=== PATIENT | female | born 1940 | race Caucasian/White ===

== ENCOUNTER 2019-04-26 20:01 | Emergency (ER) | payer OTHER ==
[~2019-04-26] VITALS: Ht 149.9 cm; Wt 81.6 kg
[~2019-04-26 20:01] MED LIST: DIPH-179 PO
[2019-04-26 20:05] VITALS: BP_SYST 144
--- NOTE | 2019-04-26 20:21 | NUR ---
Patient to ER bed 07 TO gown for evaluation. Side rails up.
--- NOTE | 2019-04-26 20:24 | NUR ---
ER Dr. Conte at bedside examining patient.
--- NOTE | 2019-04-26 20:28 | NUR ---
Pt AAOx4, panamanian speaking only, presents to ED via wheelchair c/o 08/20 pain to L lower leg s/p television falling on L leg. Swelling, discoloration noted to site. No active bleeding present. Pt denies taking medication for pain. Son at bedside. Will continue to monitor.
[2019-04-26] MEDS ORDERED: DIPHENHYDRAMINE INJ 50 MG/ML VIAL IM ONE (20:30)
[2019-04-26] MEDS ORDERED: MORPHINE 4 MG/ML INJ. SYRINGE IM ONE (20:30)
--- NOTE | 2019-04-26 20:55 | NUR ---
Portable X Ray bedside, well tolerated
--- NOTE | 2019-04-26 21:30 | NUR ---
VSS, no s/s of acute distress. Resting on gurney with rails up
[2019-04-26 22:30] VITALS: BP_SYST 142
--- NOTE | 2019-04-26 22:30 | NUR ---
Patient given written and verbal discharge instructions and verbalizes understanding. ER MD discussed with patient the results and treatment provided. Patient in stable condition. ID arm band removed. Patient educated on pain management and to follow up with PMD. Pain Scale 0/10 Opportunity for questions provided and answered.
== END 2019-04-26 22:30 | disposition home or self-care (01) ==
LOC: SED 20:01
DX: S80.12XA Contusion of left lower leg, initial encounter (principal); I10 Essential (primary) hypertension; Z90.49 Acquired absence of other specified parts of digestive tract; W20.8XXA Other cause of strike by thrown, projected or falling object, initial encounter; Y93.89 Activity, other specified; Y92.89 Other specified places as the place of occurrence of the external cause; Y99.8 Other external cause status
CPT/HCPCS: 73590; 73610; 96372; 99283; J1200; J2270

== ENCOUNTER 2019-07-10 11:30 | Day surgery (SDC) | payer OTHER ==
[~2019-07-10] VITALS: Ht 157.5 cm; Wt 68.5 kg
[~2019-07-10 11:30] MED LIST changes: +CEFAZOLIN 2 GM IVPB PREMIX 50 ML IV ONE
[2019-07-10] MEDS ORDERED: ROCURONIUM BROMIDE 10 MG/ML (ZEMURON) IV ONE (11:45)
[2019-07-10] MEDS ORDERED: PROPOFOL 200MG/ 20ML VIAL (DIPRIVAN) IV ONE (11:45)
[2019-07-10] MEDS ORDERED: BUPIVACAINE /EPINEPHRINE/PF 0.25% 30 ML VIAL INJ ONE (11:45)
[2019-07-10] MEDS ORDERED: MIDAZOLAM HCL 5 MG/5 ML VIAL IVP ONE (11:45)
[2019-07-10] MEDS ORDERED: fentaNYL CITRATE/PF 100 MCG/2 ML AMP IVP ONE (11:45)
[2019-07-10] MEDS ORDERED: KETOROLAC TROMETHAMINE 30 MG VIAL IVP ONE (11:45)
[2019-07-10] MEDS ORDERED: NS IRRIG SOLN 1000 ML IR ONE (11:45)
[2019-07-10] MEDS ORDERED: SEVOFLURANE 15 MIN GAS INH ONE (11:45)
[2019-07-10] MEDS ORDERED: DEXAMETHASONE SOD PHOSPHATE 4 MG/ML VIAL IVP ONE (11:45)
[2019-07-10] MEDS ORDERED: ONDANSETRON HCL 4 MG/2 ML VIAL IVP ONE (11:45)
[2019-07-10] MEDS ORDERED: LR 1,000 ML IV.SOLN IV ONE (11:45)
[2019-07-10] MEDS ORDERED: POLYMYXIN 500,000/BACIT.10,000 UNITS in NS IRR 1 L IR ONE (12:37)
[2019-07-10] MEDS ORDERED: MEPERIDINE HCL/PF 25 MG/ML DISP.SYRIN IVP PRN (12:45)
[2019-07-10] MEDS ORDERED: HYDROmorphone 2 MG/ML VIAL IVP PRN ×2 (12:45)
[2019-07-10] MEDS ORDERED: HYDROmorphone 1 MG INJ. 1 MG/ML AMPUL IVP PRN (12:45)
[2019-07-10] MEDS ORDERED: traMADol HCL HCL 50 MG TABLET (ULTRAM) PO PRN (13:15)
[2019-07-10] MEDS: LR 1,000 ML IV SCH ×2 (13:45→15:10)
[2019-07-10] MEDS ORDERED: HYDROmorphone 1 MG INJ. 1 MG/ML AMPUL ONE (13:48)
[2019-07-10 17:09] VITALS: BP_SYST 131
== END 2019-07-10 15:20 | disposition home or self-care (01) ==
LOC: EDSTATUS 11:30 → SDS 11:30 → PREINTOOBSV 17:41
PROVIDERS: ATTEND Surgery
DX: S80.12XA Contusion of left lower leg, initial encounter (principal); L97.922 Non-pressure chronic ulcer of unspecified part of left lower leg with fat layer exposed; I10 Essential (primary) hypertension; H40.9 Unspecified glaucoma; K21.9 Gastro-esophageal reflux disease without esophagitis; Z90.89 Acquired absence of other organs; Z96.651 Presence of right artificial knee joint; Z79.899 Other long term (current) drug therapy; Z98.890 Other specified postprocedural states; W20.8XXA Other cause of strike by thrown, projected or falling object, initial encounter; Y93.89 Activity, other specified; Y92.89 Other specified places as the place of occurrence of the external cause; Y99.8 Other external cause status
CPT/HCPCS: 11042; 11045 ×5; 88304; J0690; J1100; J1170; J1885; J2250; J2405; J2704; J3010; J3490; J7120; 88305

== ENCOUNTER 2021-08-05 22:40 | Observation (INO) | payer OTHER, SELFPAY ==
[~2021-08-05] VITALS: Ht 152.4 cm; Wt 70.1 kg
[~2021-08-05 22:40] MED LIST changes: -CEFAZOLIN 2 GM IVPB PREMIX 50 ML IV ONE; -DIPH-179 PO; +LOM2.5 PO
[2021-08-05 22:50] VITALS: BP_SYST 177
[2021-08-05 23:27] LABS: BASOPHILS % (AUTO) 0.5 % (0.0-2.0); EOSINOPHILS # (AUTO) 0.1 K/uL (0.0-0.4); HEMATOCRIT 39.3 % (36-48); HEMOGLOBIN 13.3 g/dL (12.0-16.0); LYMPHOCYTES # (AUTO) 1.3 K/uL (1.0-5.5); LYMPHOCYTES % (AUTO) 25.4 % (20.5-51.5); MEAN CORPUSCULAR HEMOGLOBIN 32 pg (27-31); MEAN CORPUSCULAR HGB CONC 34 % (32-36); MEAN CORPUSCULAR VOLUME 95 fL (79.0-98.0); MONOCYTES # (AUTO) 0.5 K/uL (0.0-1.0); MONOCYTES % (AUTO) 9.9 % (1.7-9.3); NEUTROPHILS # (AUTO) 3.2 K/uL (1.8-7.7); NEUTROPHILS % (AUTO) 63.2 % (40.0-70.0); PLATELET COUNT (AUTO) 240 K/uL (130-430); RED BLOOD CELL COUNT(AUTO) 4.16 MIL/uL (4.2-6.2); RED CELL DISTRIBUTION WIDTH 13.8 % (9.0-15.0); WHITE BLOOD COUNT (AUTO) 5.1 K/uL (4.8-10.8)
[2021-08-06] VITALS (8 sets, daily range): BP systolic 121–144
[2021-08-06 00:19] LABS: ANION GAP 9 (5-15); CALCIUM 9.1 mg/dL (8.4-11.0); CHLORIDE 109 mmol/L (98-107); CREATININE 0.89 mg/dL (0.55-1.30); GLUCOSE 87 mg/dL (70-99); POTASSIUM 4.5 mmol/L (3.5-5.1); SODIUM SERUM 144 mmol/L (136-145); UREA NITROGEN, BLOOD 20 mg/dL (8-21)
[2021-08-06 00:26] LABS: ALANINE AMINOTRANSFERASE 26 U/L (12-78); ALBUMIN 3.3 g/dL (3.4-4.8); ASPARTATE AMINOTRANSFERASE 14 U/L (10-37); TOTAL BILIRUBIN 0.2 mg/dL (0.0-1.0)
[2021-08-06 00:26] LABS: BILIRUBIN,URINE NEGATIVE (NEGATIVE); BLOOD, URINE NEGATIVE (NEGATIVE); CLARITY/URINE CLEAR (CLEAR); COLOR,URINE YELLOW (YELLOW); GLUCOSE,URINE NEGATIVE (NEGATIVE); KETONES,URINE NEGATIVE (NEGATIVE); LEUKOCYTE ESTERASE ,URINE NEGATIVE (NEGATIVE); NITRITE, URINE NEGATIVE (NEGATIVE); PROTEIN URINE NEGATIVE (NEGATIVE); UROBILINOGEN,URINE 0.2 (0.2-1.0)
[2021-08-06] MEDS ORDERED: AZITHROMYCIN 250 MG TABLET PO ONE (01:15)
[2021-08-06] MEDS ORDERED: cefTRIAXone 1 GM IVPB PREMIX 50 ML IV ONE (01:15)
[2021-08-06] MEDS ORDERED: MULT-1089 PO (01:20)
[2021-08-06] MEDS ORDERED: VITD2000 PO (01:20)
[2021-08-06] MEDS ORDERED: PRO40 PO (01:20)
[2021-08-06] MEDS ORDERED: ATEN-41 PO (01:20)
[2021-08-06] MEDS ORDERED: IOHEXOL 350 mgI/mL, 150 ML INFUS..BTL IV ONE (01:26)
[2021-08-06] MEDS ORDERED: NALOXONE HCL 0.4 MG/ML AMP (NARCAN) IVP PRN (06:30)
[2021-08-06] MEDS ORDERED: HYDROcodone/ACETAMIN 5-325 MG TAB (NORCO/ VICODIN) PO PRN (06:30)
[2021-08-06] MEDS ORDERED: ALBUTEROL SULFATE 0.083% 2.5 MG/3 ML VIAL.NEB INH PRN (06:30)
[2021-08-06 08:29] LABS: BASOPHILS % (AUTO) 0.4 % (0.0-2.0); EOSINOPHILS % (AUTO) 0.8 % (0.0-4.0); HEMATOCRIT 39.5 % (36-48); HEMOGLOBIN 13.3 g/dL (12.0-16.0); LYMPHOCYTES # (AUTO) 1.7 K/uL (1.0-5.5); LYMPHOCYTES % (AUTO) 32.2 % (20.5-51.5); MEAN CORPUSCULAR HEMOGLOBIN 32 pg (27-31); MEAN CORPUSCULAR HGB CONC 34 % (32-36); MEAN CORPUSCULAR VOLUME 95 fL (79.0-98.0); MONOCYTES # (AUTO) 0.5 K/uL (0.0-1.0); MONOCYTES % (AUTO) 9.4 % (1.7-9.3); NEUTROPHILS # (AUTO) 3.1 K/uL (1.8-7.7); NEUTROPHILS % (AUTO) 57.2 % (40.0-70.0); PLATELET COUNT (AUTO) 232 K/uL (130-430); RED BLOOD CELL COUNT(AUTO) 4.17 MIL/uL (4.2-6.2); RED CELL DISTRIBUTION WIDTH 13.7 % (9.0-15.0); WHITE BLOOD COUNT (AUTO) 5.4 K/uL (4.8-10.8)
[2021-08-06 08:47] LABS: ALANINE AMINOTRANSFERASE 22 U/L (12-78); ALBUMIN 3.1 g/dL (3.4-4.8); ANION GAP 10 (5-15); ASPARTATE AMINOTRANSFERASE 13 U/L (10-37); CALCIUM 8.6 mg/dL (8.4-11.0); CHLORIDE 108 mmol/L (98-107); CREATININE 0.73 mg/dL (0.55-1.30); GLUCOSE 99 mg/dL (70-99); POTASSIUM 4.2 mmol/L (3.5-5.1); SODIUM SERUM 142 mmol/L (136-145); TOTAL BILIRUBIN 0.1 mg/dL (0.0-1.0); UREA NITROGEN, BLOOD 17 mg/dL (8-21)
[2021-08-06 09:54] LABS: CHOLESTEROL 143 mg/dL (<200); HDL CHOLESTEROL 44 mg/dL (>55); LDL CHOLESTEROL 94 mg/dL (<100); TRIGLYCERIDES 68 mg/dL (30-150)
[2021-08-06] MEDS: PANTOPRAZOLE SODIUM 40 MG TAB PO SCH (10:40)
[2021-08-06] MEDS: ATENOLOL 25 MG TABLET(TENORMIN) PO SCH (10:41)
[2021-08-06] MEDS: ASPIRIN 325 MG TABLET PO SCH (10:41)
[2021-08-06] MEDS: busPIRone HCL 5 MG TABLET PO SCH (21:35)
[2021-08-07] VITALS: BP_SYST 123
[2021-08-07 07:07] LABS: BASOPHILS % (AUTO) 0.6 % (0.0-2.0); EOSINOPHILS # (AUTO) 0.1 K/uL (0.0-0.4); EOSINOPHILS % (AUTO) 1.7 % (0.0-4.0); HEMATOCRIT 39.2 % (36-48); HEMOGLOBIN 13.1 g/dL (12.0-16.0); LYMPHOCYTES # (AUTO) 1.9 K/uL (1.0-5.5); LYMPHOCYTES % (AUTO) 38.2 % (20.5-51.5); MEAN CORPUSCULAR HEMOGLOBIN 32 pg (27-31); MEAN CORPUSCULAR HGB CONC 33 % (32-36); MEAN CORPUSCULAR VOLUME 95 fL (79.0-98.0); MONOCYTES # (AUTO) 0.6 K/uL (0.0-1.0); NEUTROPHILS # (AUTO) 2.5 K/uL (1.8-7.7); NEUTROPHILS % (AUTO) 48.5 % (40.0-70.0); PLATELET COUNT (AUTO) 231 K/uL (130-430); RED BLOOD CELL COUNT(AUTO) 4.13 MIL/uL (4.2-6.2); RED CELL DISTRIBUTION WIDTH 13.6 % (9.0-15.0); WHITE BLOOD COUNT (AUTO) 5.1 K/uL (4.8-10.8)
[2021-08-07 08:29] LABS: ALANINE AMINOTRANSFERASE 22 U/L (12-78); ANION GAP 12 (5-15); ASPARTATE AMINOTRANSFERASE 17 U/L (10-37); CALCIUM 8.6 mg/dL (8.4-11.0); CHLORIDE 108 mmol/L (98-107); CREATININE 0.91 mg/dL (0.55-1.30); GLUCOSE 94 mg/dL (70-99); POTASSIUM 4.3 mmol/L (3.5-5.1); SODIUM SERUM 143 mmol/L (136-145); TOTAL BILIRUBIN 0.3 mg/dL (0.0-1.0); UREA NITROGEN, BLOOD 22 mg/dL (8-21)
[2021-08-07] MEDS: busPIRone HCL 5 MG TABLET PO SCH (09:19)
[2021-08-07] MEDS: PANTOPRAZOLE SODIUM 40 MG TAB PO SCH (09:19)
[2021-08-07] MEDS: ASPIRIN 325 MG TABLET PO SCH (09:19)
[2021-08-07 09:27] VITALS: BP_SYST 163
[2021-08-07] MEDS: ATENOLOL 25 MG TABLET(TENORMIN) PO SCH (09:27)
[2021-08-07 11:55] VITALS: BP_SYST 137
[2021-08-07 14:06] VITALS: BP_SYST 137
== END 2021-08-07 14:40 | disposition home or self-care (01) ==
LOC: SED 22:40 → STU 08-06 03:30
PROVIDERS: ADMIT Internal Medicine Hospice and Palliative Medicine; ATTEND Internal Medicine Hospice and Palliative Medicine
DX: R07.89 Other chest pain (principal); Z20.822 Contact with and (suspected) exposure to COVID-19; I10 Essential (primary) hypertension; I77.810 Thoracic aortic ectasia; J98.11 Atelectasis; F41.9 Anxiety disorder, unspecified; Z90.710 Acquired absence of both cervix and uterus; Z79.899 Other long term (current) drug therapy; Z90.49 Acquired absence of other specified parts of digestive tract
CPT/HCPCS: 36415 ×2; 70450; 71045; 71275; 76376 ×2; 80053 ×3; 80061; 81003; 83605 ×2; 83880; 84484 ×2; 85025 ×3; 85379; 87040; 87426; 93005 ×3; 93306; 96365; 99285; G0378 ×2; J0696; Q0144; Q9967 ×2

== ENCOUNTER 2023-05-14 06:12 | Inpatient (IN) | payer OTHER ==
[~2023-05-14] VITALS: Ht 162.6 cm; Wt 68.9 kg
[~2023-05-14 06:12] MED LIST changes: +ATEN-41 PO; -LOM2.5 PO; +MULT-1089 PO; +PRO40 PO; +VITD2000 PO
[2023-05-14 06:21] VITALS: BP_SYST 151; PULSE 68; RESP 18; TEMP 98.4; O2SAT 99
--- NOTE | 2023-05-14 06:34 | NUR ---
Patient to ER bed 7 to gown for evaluation. Side rails up.
--- NOTE | 2023-05-14 06:36 | NUR ---
PT BIB DAUGHTER WITH C/O ABD PAIN SINCE 4PM YESTERDAY AFTER EATING DINNER. PAIN HAS NOT GOTTEN WORSE NOR BETTER. REPORTS PAIN SHARP, /, "ALL OVER ABD." DENIES N/V/D AND HARD STOOL. A/O X 4, AMBULATORY.
[2023-05-14 06:48] LABS: BASOPHILS % (AUTO) 0.3 % (0.0-2.0); EOSINOPHILS % (AUTO) 0.3 % (0.0-4.0); HEMATOCRIT 42.9 % (36-48); HEMOGLOBIN 13.9 g/dL (12.0-16.0); LYMPHOCYTES # (AUTO) 1.2 K/uL (1.0-5.5); LYMPHOCYTES % (AUTO) 13.2 % (20.5-51.5); MEAN CORPUSCULAR HEMOGLOBIN 31 pg (27-31); MEAN CORPUSCULAR HGB CONC 33 % (32-36); MEAN CORPUSCULAR VOLUME 94 fL (79.0-98.0); MONOCYTES # (AUTO) 0.7 K/uL (0.0-1.0); MONOCYTES % (AUTO) 7.2 % (1.7-9.3); NEUTROPHILS # (AUTO) 7.4 K/uL (1.8-7.7); PLATELET COUNT (AUTO) 214 K/uL (130-430); RED BLOOD CELL COUNT(AUTO) 4.55 MIL/uL (4.2-6.2); RED CELL DISTRIBUTION WIDTH 14.3 % (9.0-15.0); WHITE BLOOD COUNT (AUTO) 9.3 K/uL (4.8-10.8)
[2023-05-14 07:02] LABS: ANION GAP 12 (5-15); CALCIUM 8.3 mg/dL (8.4-11.0); CHLORIDE 107 mmol/L (98-107); CREATININE 0.76 mg/dL (0.55-1.30); GLUCOSE 110 mg/dL (74-106); UREA NITROGEN, BLOOD 18 mg/dL (8-21)
--- NOTE | 2023-05-14 07:05 | NUR ---
Patient taken to Radiology now.
[2023-05-14 07:09] LABS: ALANINE AMINOTRANSFERASE 20 U/L (12-78); ALBUMIN 3.7 g/dL (3.4-4.8); AMYLASE 72 U/L (0-100); ASPARTATE AMINOTRANSFERASE 16 U/L (10-37); LACTATE DEHYDROGENASE 144 U/L (81-234); LIPASE 144 U/L (73-393); PROTHROMBIN TIME 10.5 SECS (9.5-12.5); TOTAL BILIRUBIN 0.6 mg/dL (0.0-1.0)
--- NOTE | 2023-05-14 07:14 | NUR ---
Report received from MARY Salazar
--- NOTE | 2023-05-14 07:44 | NUR ---
unable to collect urine, patient did a bowel movement in the bedside comode containing the urine. bowel movement appears soft, formed and normal color
[2023-05-14] MEDS ORDERED: KETOROLAC TROMETHAMINE 30 MG VIAL IM ONE (08:15)
[2023-05-14 08:21] LABS: ACETONE, SERUM NEGATIVE (NEGATIVE)
--- NOTE | 2023-05-14 08:56 | NUR ---
Urine collected and taken to lab
[2023-05-14 09:11] LABS: BILIRUBIN,URINE NEGATIVE (NEGATIVE); BLOOD, URINE NEGATIVE (NEGATIVE); CLARITY/URINE CLEAR (CLEAR); COLOR,URINE YELLOW (YELLOW); GLUCOSE,URINE NEGATIVE (NEGATIVE); KETONES,URINE NEGATIVE (NEGATIVE); LEUKOCYTE ESTERASE ,URINE NEGATIVE (NEGATIVE); NITRITE, URINE NEGATIVE (NEGATIVE); PH,URINE 6.5 (5.0-8.0); PROTEIN URINE NEGATIVE (NEGATIVE); UROBILINOGEN,URINE 0.2 (0.2-1.0)
[2023-05-14] MEDS ORDERED: NACL 0.9% 1,000 ML IV ONE (09:15)
[2023-05-14] MEDS ORDERED: metroNIDAZOLE 500 mg/NS 100 ML IV ONE (09:15)
[2023-05-14] MEDS ORDERED: PIPERACILLIN/TAZO 3.375 GM in NS 50 ML IV ONE (09:15)
[2023-05-14] MEDS ORDERED: MORPHINE 2 MG/ML INJ. SYRINGE IVP ONE (09:15)
--- NOTE | 2023-05-14 09:31 | NUR ---
Admit bed requested Patient will be admitted to care of Dr. LEVIN. Admitted to TELE unit. Diagnosis ACUTE APPENDICITIS Inpatient (Yes or No) YES Observation (Yes or No) NO Orientation concerns or request close to nursing station (Yes or No) NO Covid Status NA On vent or bipap NO Isolation requirements NO Needs a sitter NO From Home (Yes or if No enter name of facility) HOME Requires Dialysis (Yes or No) NO Med Rec Completed (Yes of No) YES
--- NOTE | 2023-05-14 09:58 | NUR ---
Radiology at bedside
[2023-05-14] MEDS ORDERED: DORZ10DR13 EACH EYE (09:59)
[2023-05-14] MEDS ORDERED: FAMO40TA7 PO (09:59)
--- NOTE | 2023-05-14 10:02 | NUR ---
Medication reconciliation completed with information provided by patient and daughter meds in a bag from home. Any prior medication reconciliation on file was reviewed and corrected.
[2023-05-14 10:08] LABS: INR 1.1 (0.8-1.2)
--- NOTE | 2023-05-14 10:44 | NUR ---
22g IV placed to left hand patient tolerated well.
--- NOTE | 2023-05-14 10:46 | NUR ---
Patient declined Morphine at this time, states the Toradol is still working.
[2023-05-14] MEDS ORDERED: PIPERACILLIN/TAZOBACTAM 3.375 GM/VIAL (ZOSYN) IV ONE (10:52)
--- NOTE | 2023-05-14 11:33 | NUR ---
CONSULTATION PAGED/CALLED Reason for Consultation: acute appendicitis Person Who was Notified: Chanell Consulting Physician: Dr. Johanna Contreras [employer] Specialist Specialty: Cardio Ordering Physician: Francisco Javier Addendum: 05/14/23 at 1421 by Marleny Dowling LVN CONSULTATION PAGED/CALLED Reason for Consultation: Cardiac clearance Person Who was Notified: Chanell Consulting Physician: Dr. Johanna Contreras [employer] Specialist Specialty: Cardio Ordering Physician: Francisco Javier
[2023-05-14] MEDS: D5/0.45 NS 1,000 ML IV SCH ×2 (11:45→18:14)
[2023-05-14] MEDS ORDERED: KETOROLAC TROMETHAMINE 30 MG VIAL IVP PRN (11:45)
--- NOTE | 2023-05-14 11:45 | NUR ---
ADMISSION NOTE Pt arrived to floor via gurney to room. Pt was oriented to room and nursing routines and procedures. Questions/concerns were answered. Tele unit was applied on admission to room/bed. IV in left hand intact and patent infusing IVF's well. Call light within reach. Bed in low position and bed alarm on. Side rails raised. Pt's son in law Lizama at bedside interpreting for pt and RN at this time.
--- NOTE | 2023-05-14 11:45 | NUR ---
Patient will be admitted to care of [facility]. Admitted to TELE unit. Will go to room 118A. Belongings list completed. Complete and up to date summary report printed. SBAR report to be given at bedside with opportunity for questions.
[2023-05-14 11:49] VITALS: BP_SYST 140; PULSE 69; RESP 18; TEMP 98.2
[2023-05-14 12:00] VITALS: BP_SYST 135; RESP 16; TEMP 97.8; O2SAT 96
[2023-05-14] MEDS ORDERED: ONDANSETRON HCL 4 MG/2 ML VIAL IVP PRN (12:45)
[2023-05-14] MEDS ORDERED: MORPHINE 2 MG/ML INJ. SYRINGE IVP PRN (12:45)
[2023-05-14] MEDS ORDERED: NALOXONE HCL 0.4 MG/ML AMP (NARCAN) IVP PRN (12:45)
[2023-05-14] MEDS ORDERED: MORPHINE 4 MG INJ. 4 MG/ML VIAL IVP PRN (12:45)
[2023-05-14] MEDS ORDERED: LORazepam 2 MG/ML VIAL IVP PRN (12:45)
--- NOTE | 2023-05-14 13:00 | NUR ---
Note Admission assessment completed. Pt had 2D echo completed and blood draw for Blood cultures completed at this time as well. Pt's daughter and son in law at bedside. Call light within reach.
[2023-05-14] MEDS: PIPERACILLIN/TAZO 3.375 GM in NS 50 ML IV SCH ×2 (13:55→21:17)
--- NOTE | 2023-05-14 14:18 | NUR ---
CONSULTATION PAGED/CALLED Reason for Consultation: appendicitis Person Who was Notified: Dr. Sewell made aware Consulting Physician: Dr. Sewell Telephoner Specialty: Surgery Ordering Physician: Diane
[2023-05-14 16:00] VITALS: BP_SYST 140; PULSE 73; RESP 18; TEMP 98; O2SAT 98
[2023-05-14 16:16] VITALS: BP_SYST 140; PULSE 69; RESP 18; TEMP 98.2; O2SAT 98
--- NOTE | 2023-05-14 16:55 | NUR ---
Note TEN Lua (cardiology) was at bedside assessing pt for medical clearance for surgery tomorrow. EKG was completed at bedside at this time as well. Pt's son in law and daughter have left bedside and gone home at this time. Pt sleeping most of shift. Abdominal pain tolerable at this time. Pt refuses Toradol IVP at this time. Call light within reach. IVF's infusing well and no needs noted.
--- NOTE | 2023-05-14 18:00 | NUR ---
End of shift Pt asleep and denies any needs at this time. Pt was maintained with safety precautions all shift. Pt was checked on q1' and PRn all shift for needs and care. Tele unit attached and intact. IV in left hand intact and patent infusing IVF's well. Bed in low position and bed alarm on. Side rails raised. Call light within reach.
[2023-05-14 20:06] VITALS: BP_SYST 124; PULSE 77; RESP 16; TEMP 99; O2SAT 96
[2023-05-14] MEDS ORDERED: DORZOLAMIDE HCL/TIMOLOL MAL. 10 ML EYE DROPS (COSOPT) EACH EYE SCH (21:00)
[2023-05-14] MEDS: DORZOLAMIDE OP SCH (21:49)
[2023-05-14] MEDS: TIMOLOL OP SCH (21:49)
[2023-05-15] VITALS (9 sets, daily range): BP systolic 0–127; PULSE 61–98; RESP 0–17; TEMP 96.8–99.1; O2SAT 0–99
[2023-05-15 05:04] LABS: BASOPHILS % (AUTO) 0.1 % (0.0-2.0); EOSINOPHILS % (AUTO) 0.1 % (0.0-4.0); HEMATOCRIT 39.6 % (36-48); HEMOGLOBIN 12.8 g/dL (12.0-16.0); LYMPHOCYTES # (AUTO) 0.9 K/uL (1.0-5.5); LYMPHOCYTES % (AUTO) 6.6 % (20.5-51.5); MEAN CORPUSCULAR HEMOGLOBIN 30 pg (27-31); MEAN CORPUSCULAR HGB CONC 32 % (32-36); MEAN CORPUSCULAR VOLUME 94 fL (79.0-98.0); MONOCYTES # (AUTO) 0.8 K/uL (0.0-1.0); MONOCYTES % (AUTO) 6.2 % (1.7-9.3); NEUTROPHILS # (AUTO) 11.2 K/uL (1.8-7.7); PLATELET COUNT (AUTO) 170 K/uL (130-430); RED BLOOD CELL COUNT(AUTO) 4.23 MIL/uL (4.2-6.2); RED CELL DISTRIBUTION WIDTH 13.7 % (9.0-15.0); WHITE BLOOD COUNT (AUTO) 12.9 K/uL (4.8-10.8)
[2023-05-15] MEDS: PIPERACILLIN/TAZO 3.375 GM in NS 50 ML IV SCH ×3 (05:28→21:42)
--- NOTE | 2023-05-15 05:30 | NUR ---
IV RE-INSERTION: Complaining of pain to IV site. Restarted on left AC 22G. Successful after first attempts. Resumed current IVF of D5 1/2 NS and regulated @ 100 per hour. Will observe for any signs of infiltration.
[2023-05-15 05:41] LABS: INR 1.2 (0.8-1.2)
[2023-05-15 06:00] LABS: ANION GAP 13 (5-15); CHLORIDE 110 mmol/L (98-107); CREATININE 0.78 mg/dL (0.55-1.30); GLUCOSE 135 mg/dL (74-106); UREA NITROGEN, BLOOD 13 mg/dL (8-21)
[2023-05-15] MEDS: D5/0.45 NS 1,000 ML IV SCH ×2 (07:45→18:35)
[2023-05-15] MEDS: TIMOLOL OP SCH ×2 (09:00→20:34)
[2023-05-15] MEDS: DORZOLAMIDE OP SCH ×2 (09:00→20:34)
[2023-05-15] MEDS ORDERED: PANTOPRAZOLE SODIUM 40 MG TAB PO SCH (09:00)
[2023-05-15] MEDS: ATENOLOL 25 MG TABLET(TENORMIN) PO SCH (09:00)
[2023-05-15] MEDS ORDERED: PROPOFOL 200MG/ 20ML VIAL (DIPRIVAN) IV ONE (10:10)
[2023-05-15] MEDS ORDERED: ROCURONIUM BROMIDE 10 MG/ML (ZEMURON) ONE (10:10)
[2023-05-15] MEDS ORDERED: NS 1000 ML IV.SOLN IV ONE (10:10)
[2023-05-15] MEDS ORDERED: NEOSTIGMINE METHYLSULFATE 1 MG/ML, 10 ML VIAL ONE (10:10)
[2023-05-15] MEDS ORDERED: ONDANSETRON HCL 4 MG/2 ML VIAL ONE (10:10)
[2023-05-15] MEDS ORDERED: GLYCOPYRROLATE 0.2 MG/ML VIAL ONE (10:10)
[2023-05-15] MEDS ORDERED: D5/0.45 NS 1,000 ML IV.SOLN IV ONE (10:10)
[2023-05-15] MEDS ORDERED: SUCCINYLCHOLINE CHLORIDE 20 MG/ML(QUELICIN) ONE (10:10)
[2023-05-15] MEDS ORDERED: BUPIVACAINE /PF 0.25% 30 ML VIAL INJ ONE (10:10)
[2023-05-15] MEDS ORDERED: KETOROLAC TROMETHAMINE 30 MG VIAL ONE (10:10)
[2023-05-15] MEDS ORDERED: NS IRRIG SOLN 1000 ML IR ONE (10:10)
[2023-05-15] MEDS ORDERED: SEVOFLURANE 15 MIN GAS INH ONE (10:10)
[2023-05-15] MEDS ORDERED: HYDROmorphone 1 MG/ML INJ. CARTRIDGE IVP PRN (11:00)
[2023-05-15] MEDS ORDERED: ACETAMINOPHEN I.V. 1000 MG 100 ML IV ONE ×2 (11:00→12:12)
[2023-05-15] MEDS ORDERED: METOCLOPRAMIDE HCL 10 MG/2 ML VIAL IVP PRN (11:00)
[2023-05-15] MEDS ORDERED: NALOXONE HCL 0.4 MG/ML AMP (NARCAN) IVP PRN (11:00)
[2023-05-15] MEDS ORDERED: KETOROLAC TROMETHAMINE 30 MG VIAL IVP PRN (11:00)
[2023-05-15] MEDS ORDERED: ONDANSETRON HCL 4 MG/2 ML VIAL IVP PRN (11:00)
--- NOTE | 2023-05-15 12:50 | NUR ---
Patient's back from OR, S/P Laparoscopic Appendectomy. Patient's alert and oriented, verbally responsive in no acute distress. Daughter at the bedside. Patient's abdomen was soft and moderately distended, noted 2 lap sites with SALINAS Espinoza and one lap site with ALEX noted dressing with slight blood on it. ALEX draining serous sanguinous. Patient denied any pain or discomfort at this time.
[2023-05-15] MEDS: FAMOTIDINE 20 MG TABLET PO SCH (13:18)
[2023-05-15] MEDS: CHOLECALCIFEROL (VITAMIN D3) 2,000 UNIT TABLET PO SCH (13:19)
[2023-05-15] MEDS: MULTIVITAMINS TAB 1 TABLET PO SCH (13:20)
[2023-05-15] MEDS: HYDROmorphone 1 MG/ML INJ. CARTRIDGE IVP PRN (17:18)
[2023-05-15] MEDS ORDERED: POTASSIUM CHLORIDE 40 MEQ in NS 250 ML IV ONE (21:30)
[2023-05-16 00:02] VITALS: BP_SYST 110; PULSE 75; RESP 18; TEMP 99.3; O2SAT 99
[2023-05-16 02:02] VITALS: O2SAT 97
[2023-05-16] MEDS: HYDROmorphone 1 MG/ML INJ. CARTRIDGE IVP PRN (03:20)
[2023-05-16 04:41] LABS: BASOPHILS # (AUTO) 0.1 K/uL (0.0-0.2); BASOPHILS % (AUTO) 1.2 % (0.0-2.0); EOSINOPHILS % (AUTO) 0.3 % (0.0-4.0); HEMATOCRIT 35.1 % (36-48); HEMOGLOBIN 11.5 g/dL (12.0-16.0); LYMPHOCYTES # (AUTO) 0.5 K/uL (1.0-5.5); LYMPHOCYTES % (AUTO) 5.5 % (20.5-51.5); MEAN CORPUSCULAR HEMOGLOBIN 31 pg (27-31); MEAN CORPUSCULAR HGB CONC 33 % (32-36); MEAN CORPUSCULAR VOLUME 94 fL (79.0-98.0); MONOCYTES # (AUTO) 0.4 K/uL (0.0-1.0); MONOCYTES % (AUTO) 4.5 % (1.7-9.3); NEUTROPHILS # (AUTO) 8.5 K/uL (1.8-7.7); NEUTROPHILS % (AUTO) 88.5 % (40.0-70.0); PLATELET COUNT (AUTO) 152 K/uL (130-430); RED BLOOD CELL COUNT(AUTO) 3.73 MIL/uL (4.2-6.2); RED CELL DISTRIBUTION WIDTH 13.9 % (9.0-15.0); WHITE BLOOD COUNT (AUTO) 9.6 K/uL (4.8-10.8)
[2023-05-16 04:50] LABS: ANION GAP 9 (5-15); CALCIUM 7.4 mg/dL (8.4-11.0); CHLORIDE 109 mmol/L (98-107); CREATININE 0.82 mg/dL (0.55-1.30); GLUCOSE 159 mg/dL (74-106); UREA NITROGEN, BLOOD 11 mg/dL (8-21)
[2023-05-16 04:55] LABS: ERYTHROCYTE SEDIMENTATION RATE 31 MM/HR (0-20)
[2023-05-16] MEDS: D5/0.45 NS 1,000 ML IV SCH ×3 (05:23→18:24)
[2023-05-16] MEDS: PIPERACILLIN/TAZO 3.375 GM in NS 50 ML IV SCH ×3 (06:10→21:14)
[2023-05-16 08:39] VITALS: BP_SYST 101; PULSE 70; RESP 18; TEMP 96.8; O2SAT 99
[2023-05-16] MEDS: ATENOLOL 25 MG TABLET(TENORMIN) PO SCH (09:00)
[2023-05-16] MEDS: CHOLECALCIFEROL (VITAMIN D3) 2,000 UNIT TABLET PO SCH (09:30)
[2023-05-16] MEDS: FAMOTIDINE 20 MG TABLET PO SCH (09:30)
[2023-05-16] MEDS: MULTIVITAMINS TAB 1 TABLET PO SCH (09:31)
[2023-05-16] MEDS: TIMOLOL OP SCH ×2 (09:32→21:14)
[2023-05-16] MEDS: DORZOLAMIDE OP SCH ×2 (09:32→21:14)
[2023-05-16 12:19] VITALS: BP_SYST 105; PULSE 72; RESP 19; TEMP 97.2; O2SAT 97
--- NOTE | 2023-05-16 16:12 | NUR ---
MD discharge Per Dr Sewell patients pain is not controlled will hold discharge at this time
[2023-05-16 16:56] VITALS: BP_SYST 103; PULSE 71; RESP 20; TEMP 97; O2SAT 98
[2023-05-16 19:30] VITALS: BP_SYST 146; PULSE 77; RESP 20; TEMP 100; O2SAT 98
--- NOTE | 2023-05-16 19:30 | NUR ---
PM ASSESSMENT; - Patient is awake, alert, oriented X4. Pt denies any chest pain,pain,sob,or any acute distress. Discussed poc,pain mgmt, safety measures with pt and dtr, they verbalized understanding. Patient oriented to hospital room, call light, toileting, pain management and safety-teach back done. Abd drsg cdi with JPx1 of mid low abd drains sanguinous output. Patient informed that I ( Rachel) will be her nurse and that her room number is 118-A. Fall precaution in place, side rails x3, and call light within reach. Cont to monitor pt.
[2023-05-16] MEDS: HYDROcodone/ACETAMIN 5-325 MG TAB (NORCO/ VICODIN) PO PRN (22:39)
--- NOTE | 2023-05-16 23:39 | NUR ---
ROUNDS; -Pt awake, resting in bed comfortably. Pt denies any chest pain,pain,sob,or any acute distress. IVF infusing well, no s/s any infiltration noted. Assisted with bedpan, pt just only voided. Perineal care provided,now pt is cleaned & dry. Bed alarmed,side rails x3,call light w/in reach. Cont to monitor pt.
[2023-05-17 00:11] VITALS: BP_SYST 106; PULSE 71; RESP 16; TEMP 98.1; O2SAT 98
--- NOTE | 2023-05-17 01:50 | NUR ---
ROUNDS; -Pt is resting in bed comfortably. No s/s any acute distress noted. IVF infusing well, no s/s any infiltration noted. Bed alarmed,side rails x3,call light w/in reach. Cont to monitor pt.
--- NOTE | 2023-05-17 04:06 | NUR ---
ROUNDS; -Pt is still asleep. NO s/s any pain,sob,or any acute distress noted. All safety measures in place. Call light w/in reach. Cont to monitor pt.
[2023-05-17] MEDS: PIPERACILLIN/TAZO 3.375 GM in NS 50 ML IV SCH ×2 (05:20→13:32)
[2023-05-17 05:33] LABS: BASOPHILS % (AUTO) 0.2 % (0.0-2.0); EOSINOPHILS # (AUTO) 0.1 K/uL (0.0-0.4); EOSINOPHILS % (AUTO) 2.1 % (0.0-4.0); HEMATOCRIT 35.8 % (36-48); HEMOGLOBIN 11.9 g/dL (12.0-16.0); LYMPHOCYTES % (AUTO) 14.4 % (20.5-51.5); MEAN CORPUSCULAR HEMOGLOBIN 31 pg (27-31); MEAN CORPUSCULAR HGB CONC 33 % (32-36); MEAN CORPUSCULAR VOLUME 94 fL (79.0-98.0); MONOCYTES # (AUTO) 0.5 K/uL (0.0-1.0); MONOCYTES % (AUTO) 7.3 % (1.7-9.3); NEUTROPHILS # (AUTO) 5.2 K/uL (1.8-7.7); PLATELET COUNT (AUTO) 153 K/uL (130-430); RED BLOOD CELL COUNT(AUTO) 3.83 MIL/uL (4.2-6.2); RED CELL DISTRIBUTION WIDTH 13.8 % (9.0-15.0); WHITE BLOOD COUNT (AUTO) 6.8 K/uL (4.8-10.8)
[2023-05-17 05:38] LABS: ERYTHROCYTE SEDIMENTATION RATE 31 MM/HR (0-20)
[2023-05-17 05:58] LABS: ALANINE AMINOTRANSFERASE 15 U/L (12-78); ALBUMIN 2.2 g/dL (3.4-4.8); ANION GAP 11 (5-15); ASPARTATE AMINOTRANSFERASE 17 U/L (10-37); CALCIUM 7.5 mg/dL (8.4-11.0); CHLORIDE 112 mmol/L (98-107); CREATININE 0.71 mg/dL (0.55-1.30); GLUCOSE 101 mg/dL (74-106); UREA NITROGEN, BLOOD 5 mg/dL (8-21)
--- NOTE | 2023-05-17 06:05 | NUR ---
NOTES; MRSA COLLECTED AND SENT TO LAB.
--- NOTE | 2023-05-17 06:32 | NUR ---
CLOSING NOTES; -Pt is resting in bed comfortably. Pt denies any chest pain,pain,sob,or any acute distress. Abd drsg cdi with JPx1 of mid low abd drains sanguinous output. IVF infusing well, no s/s any infiltration. IV site patent no s/s any infiltration. Fall precaution in place, side rails x3, and call light within reach. Will endorse to next nurse to continuity of care.
[2023-05-17 08:00] VITALS: BP_SYST 142; PULSE 80; RESP 16; TEMP 98.9; O2SAT 98
[2023-05-17] MEDS: CHOLECALCIFEROL (VITAMIN D3) 2,000 UNIT TABLET PO SCH (09:08)
[2023-05-17] MEDS: MULTIVITAMINS TAB 1 TABLET PO SCH (09:08)
[2023-05-17] MEDS: TIMOLOL OP SCH (09:09)
[2023-05-17] MEDS: DORZOLAMIDE OP SCH (09:09)
[2023-05-17] MEDS: FAMOTIDINE 20 MG TABLET PO SCH (09:09)
[2023-05-17] MEDS: ATENOLOL 25 MG TABLET(TENORMIN) PO SCH (09:10)
[2023-05-17] MEDS: D5/0.45 NS 1,000 ML IV SCH (09:45)
[2023-05-17 12:00] VITALS: BP_SYST 135; PULSE 67; RESP 16; TEMP 99.1; O2SAT 98
[2023-05-17 16:00] VITALS: BP_SYST 141; PULSE 69; RESP 16; TEMP 99.4; O2SAT 98
[2023-05-17] MEDS: HYDROcodone/ACETAMIN 5-325 MG TAB (NORCO/ VICODIN) PO PRN (16:53)
[2023-05-17] MEDS ORDERED: HYDR-3917 PO (17:30)
[2023-05-17 17:56] VITALS: BP_SYST 141; PULSE 69; RESP 18; TEMP 99.4; O2SAT 98
--- NOTE | 2023-05-17 19:40 | NUR ---
pt dc home. pt and pt daughter received all education and instructions. pt received all dc paperwork. iv removed. pt verbalized understanding to get pain meds from [facility]. Pt taken to parking lot via wheelchair.
== END 2023-05-17 19:40 | disposition home or self-care (01) | DRG 853 ==
LOC: SED 06:12 → STU 09:23 → SMU 05-16 16:54
PROVIDERS: ADMIT Specialist; ATTEND Specialist
PROC: 0DTJ4ZZ Resection of Appendix, Percutaneous Endoscopic Approach (ICD-10-PCS; principal; 2023-05-15 10:12)
DX: A41.9 Sepsis, unspecified organism (principal); E43 Unspecified severe protein-calorie malnutrition; K35.80 Unspecified acute appendicitis; E83.52 Hypercalcemia; E88.09 Other disorders of plasma-protein metabolism, not elsewhere classified; I10 Essential (primary) hypertension; K21.9 Gastro-esophageal reflux disease without esophagitis; E83.51 Hypocalcemia; E87.6 Hypokalemia; R73.9 Hyperglycemia, unspecified; D64.9 Anemia, unspecified; Z87.19 Personal history of other diseases of the digestive system; Z79.891 Long term (current) use of opiate analgesic; Z79.899 Other long term (current) drug therapy; Z68.26 Body mass index [BMI] 26.0-26.9, adult
CPT/HCPCS: 36415; 71045; 76376; 80048; 80053; 81003; 82009; 82150; 83605; 83615; 83690; 83735; 83880; 84484; 85025; 85610-TC; 85651-TC; 85730-TC; 86886; 86900; 86901; 87040; 87081; 88304; 93005; 93306; 96360; 96372; 99285; C1727; G0378; J0131; J0330; J1170; J1885; J2405; J2543; J2704; J2710; J3480; J3490; J7030; J7050

== ENCOUNTER 2023-09-05 11:35 | Day surgery (SDC) | payer OTHER ==
[~2023-09-05] VITALS: Ht 152.4 cm; Wt 66.7 kg
[~2023-09-05 11:35] MED LIST changes: +DORZ10DR31 EACH EYE; +FAMO40TA7 PO; +HYDR-3917 PO
[2023-09-05] MEDS ORDERED: fentaNYL CITRATE/PF 100 MCG/2 ML AMP ONE (13:14)
[2023-09-05] MEDS ORDERED: MIDAZOLAM HCL 5 MG/5 ML VIAL ONE (13:14)
[2023-09-05 16:11] VITALS: BP_SYST 149; PULSE 62; RESP 16; TEMP 98.6; O2SAT 99
== END 2023-09-05 16:10 | disposition home or self-care (01) ==
LOC: SDS 11:35 → SMU 11:36 → SDS 16:10
PROVIDERS: ATTEND Surgery
DX: Z12.11 Encounter for screening for malignant neoplasm of colon (principal); K35.211 Acute appendicitis with generalized peritonitis, with perforation and abscess
CPT/HCPCS: 45378; 99152; 82962; 99153; G0378; J2250; J3010